=== PATIENT | male | born 1960 | race Caucasian/White ===

== ENCOUNTER 2019-09-06 21:32 | Emergency (ER) | payer OTHER ==
[~2019-09-06] VITALS: Ht 170.2 cm; Wt 80.2 kg
--- NOTE | 2019-09-06 21:52 | NUR ---
THIS IS A 58 YO M W/ C/O BODY ACHES X3-4 DAYS. PT REPORTS WORSE IN LOW BACK AND LEFT SIDE OF NECK 11/07. PT DENIES SOB/CP/PAIN W/ URINATION/COUGH/FEVERS. REPORTS NO RECENT TRAVEL. PT DENIES HOME MEDS/MED HX. PT RESTING ON [employer] W/ CALL LIGHT IN REACH, CONNECTED TO ALL MONITORING, VSS, NADN. AT BEDSIDE FOR ED EVAL.
[2019-09-06 22:12] LABS: BASOPHILS # (AUTO) 0.03 x10^3/uL (0-0.1); BASOPHILS % (AUTO) 1 % (0-1); EOSINOPHILS # (AUTO) 0.05 x10^3/uL (0-0.4); EOSINOPHILS % (AUTO) 1 % (1-7); LYMPHOCYTES # (AUTO) 1.11 x10^3/uL (1-3.4); LYMPHOCYTES % (AUTO) 15 % (22-44); MD NO; MEAN CORPUSCULAR HEMOGLOBIN 30.5 pg (27.5-34.5); MEAN CORPUSCULAR HGB CONC 33.4 g/dL (33.2-36.2); MEAN CORPUSCULAR VOLUME 91.4 fL (81-97); MEAN PLATELET VOLUME 7.2 fL (7.4-10.4); MONOCYTES # (AUTO) 0.62 x10^3/uL (0.2-0.8); MONOCYTES % (AUTO) 8 % (2-9); NEUTROPHILS # (AUTO) 5.84 x10^3/uL (1.8-6.8); NEUTROPHILS % (AUTO) 76 % (42-75); PLATELET COUNT 332 x10^3/uL (130-400); RED BLOOD COUNT 4.94 x10^6/uL (4.38-5.82); RED CELL DISTRIBUTION WIDTH 12.3 % (9.4-14.8)
[2019-09-06 22:22] LABS: ANION GAP 5 mmol/L (5-15); CALCIUM 8.4 mg/dL (8.5-10.1); CHLORIDE 102 mmol/L (98-107); CREATININE 1.34 mg/dL (0.7-1.3)
[2019-09-06 22:48] VITALS: BP 101/64
--- NOTE | 2019-09-08 14:52 | NUR ---
THROUGHPUT RN: PT CAME BACK POSITIVE FOR COVID-19. NO INFORMATION FOR ADDRESS, PHONE NUMBER, NEXT OF KIN, PERSON TO NOTIFY, UNKNOWN IF PT CAME BY [facility]. SPOKE W/ DANIEL DOWNEY WHO STATES THEY WILL ASSESS AND LOOK INTO PT SITUATION. [facility] SHOULD BE LOOKING INTO THIS WELL.
== END 2019-09-06 23:03 | disposition home or self-care (01) ==
LOC: ED 21:34
DX: B34.9 Viral infection, unspecified (principal); Z20.828 Contact with and (suspected) exposure to other viral communicable diseases; R50.9 Fever, unspecified
CPT/HCPCS: 36415; 71046; 80048; 82040; 85025; 99284; U0001

== ENCOUNTER 2019-11-16 04:28 | Emergency (ER) | payer OTHER ==
[~2019-11-16] VITALS: Ht 170.2 cm; Wt 81.2 kg
[2019-11-16 04:31] VITALS: BP 142/80
[2019-11-16] MEDS ORDERED: CYCLOBENZAPRINE 10 MG TABLET PO ONE (05:00)
[2019-11-16] MEDS ORDERED: KETOROLAC 30 MG/1 ML IM ONE (05:00)
[2019-11-16] MEDS ORDERED: ACETAMINOPHEN 500 MG TABLET PO ONE (05:00)
[2019-11-16] MEDS ORDERED: ACETAMINOPHEN 500 MG TABLET ONE (05:08)
[2019-11-16] MEDS ORDERED: CYCLOBENZAPRINE 10 MG TABLET ONE (05:08)
[2019-11-16] MEDS ORDERED: KETOROLAC 30 MG/1 ML ONE (05:08)
--- NOTE | 2019-11-16 05:21 | NUR ---
PT MEDICATED PER MAY. PT RESTING COMFORTABLY IN [facility] AT THIS TIME; NAD.
--- NOTE | 2019-11-16 06:38 | NUR ---
PT D/C WITH D/C SUMMARY AND SCRIPTS. ALL QUESTIONS ANSWERED. PT AMBULATES TO REGISTRATION DESK WITH STEADY GAIT FOR D/C HOME. PT DENIES ANY OTHER NEEDS PERTAINING TO THIS VISIT. WORK NOTE PROVIDED BY PROVIDED FOR LIMITATION OF ACTIVITY AND REFERRAL TO [facility]THO OP.
== END 2019-11-16 06:43 | disposition home or self-care (01) ==
LOC: ED 04:58
DX: S43.402A Unspecified sprain of left shoulder joint, initial encounter (principal); I51.7 Cardiomegaly; X58.XXXA Exposure to other specified factors, initial encounter; Y93.89 Activity, other specified; Y92.89 Other specified places as the place of occurrence of the external cause; Y99.8 Other external cause status
CPT/HCPCS: 29105; 73030; 93005; 96372; 99283; J1885

== ENCOUNTER 2020-02-16 19:25 | Emergency (ER) | payer OTHER ==
[~2020-02-16] VITALS: Ht 172.7 cm; Wt 83.5 kg
--- NOTE | 2020-02-16 20:03 | NUR ---
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 TO ROOM FROM LOBBY AT THIS TIME.
[2020-02-16 20:56] LABS: BASOPHILS % (AUTO) 1 % (0-1); EOSINOPHILS % (AUTO) 1 % (1-7); LYMPHOCYTES % (AUTO) 21 % (22-44); MD NO; MEAN CORPUSCULAR HEMOGLOBIN 31.4 pg (27.5-34.5); MEAN PLATELET VOLUME 7.5 fL (7.4-10.4); MONOCYTES % (AUTO) 9 % (2-9); NEUTROPHILS % (AUTO) 68 % (42-75); PLATELET COUNT 329 x10^3/uL (130-400); RED BLOOD COUNT 4.62 x10^6/uL (4.38-5.82); RED CELL DISTRIBUTION WIDTH 13.8 % (9.4-14.8)
[2020-02-16] MEDS ORDERED: ONDANSETRON 2MG/ML, 2ML ONE (20:59)
[2020-02-16] MEDS ORDERED: ONDANSETRON 2MG/ML, 2ML IVPush ONE (21:00)
[2020-02-16] MEDS ORDERED: SODIUM CHLORIDE 0.9% 1,000ML IVBOLUS ONE (21:00)
[2020-02-16] MEDS ORDERED: SODIUM CHLORIDE FLUSH 10ML SYR IVF ONE (21:00)
--- NOTE | 2020-02-16 21:02 | NUR ---
iv access obtained. pt medicated. pt has had no other episode of vomiting since in room.
[2020-02-16] MEDS ORDERED: KETOROLAC 30 MG/1 ML ONE (21:15)
[2020-02-16 21:19] LABS: ALANINE AMINOTRANSFERASE 46 U/L (12-78); ANION GAP 7 mmol/L (5-15); BILIRUBIN,TOTAL 0.8 mg/dL (0.2-1.0); CALCIUM 8.7 mg/dL (8.5-10.1); CHLORIDE 112 mmol/L (98-107)
[2020-02-16 21:20] LABS: ALBUMIN 3.7 g/dL (3.4-5.0); ALKALINE PHOSPHATASE 78 U/L (45-117); TOTAL PROTEIN 7.2 g/dL (6.4-8.2)
[2020-02-16] MEDS ORDERED: KETOROLAC 30 MG/1 ML IVPush ONE (21:30)
[2020-02-16 22:02] VITALS: BP 128/74
== END 2020-02-16 22:20 | disposition home or self-care (01) ==
LOC: ED 21:57
DX: B34.9 Viral infection, unspecified (principal); R11.2 Nausea with vomiting, unspecified; R51.9 Headache, unspecified; R53.83 Other fatigue; R94.31 Abnormal electrocardiogram [ECG] [EKG]
CPT/HCPCS: 36415; 71045; 80053; 83690; 85025; 93005; 96361; 96374; 96375; 99285; J1885; J2405; J7030

== ENCOUNTER 2020-02-22 17:39 | Emergency (ER) | payer OTHER ==
[~2020-02-22] VITALS: Ht 172.7 cm; Wt 83.4 kg
[2020-02-22 17:42] VITALS: BP 119/87
== END 2020-02-22 19:04 | disposition home or self-care (01) ==
LOC: ED 18:29
DX: M79.10 Myalgia, unspecified site (principal); Z20.828 Contact with and (suspected) exposure to other viral communicable diseases; R51.9 Headache, unspecified; R11.2 Nausea with vomiting, unspecified
CPT/HCPCS: 87635; 99283

== ENCOUNTER 2020-09-02 01:17 | Emergency (ER) | payer SELFPAY ==
[~2020-09-02] VITALS: Ht 172.7 cm; Wt 83.7 kg
[2020-09-02 02:19] LABS: BASOPHILS % (AUTO) 1 % (0-1); EOSINOPHILS % (AUTO) 2 % (1-7); LYMPHOCYTES % (AUTO) 37 % (22-44); MEAN CORPUSCULAR HEMOGLOBIN 31.9 pg (27.5-34.5); MEAN CORPUSCULAR HGB CONC 34.4 g/dL (33.2-36.2); MEAN PLATELET VOLUME 7.9 fL (7.4-10.4); MONOCYTES % (AUTO) 9 % (2-9); NEUTROPHILS % (AUTO) 51 % (42-75); PLATELET COUNT 261 x10^3/uL (130-400); RED BLOOD COUNT 4.74 x10^6/uL (4.38-5.82)
[2020-09-02 02:22] LABS: MD NO
[2020-09-02 02:23] LABS: ALBUMIN 3.8 g/dL (3.4-5.0); ANION GAP 4 mmol/L (5-15); CALCIUM 8.6 mg/dL (8.5-10.1); CHLORIDE 109 mmol/L (98-107); CREATININE 1.28 mg/dL (0.7-1.3)
[2020-09-02 02:40] VITALS: BP 109/73
== END 2020-09-02 02:48 | disposition home or self-care (01) ==
LOC: ED 01:47
DX: K64.8 Other hemorrhoids (principal); K59.00 Constipation, unspecified
CPT/HCPCS: 36415; 80048; 82040; 85025; 99283